=== PATIENT | male | born 1950 | race Caucasian/White ===

== ENCOUNTER 2017-01-10 19:08 | Emergency (ER) | payer OTHER, MEDICARE ==
[~2017-01-10] VITALS: Ht 167.6 cm; Wt 113.6 kg
[2017-01-10 19:28] VITALS: BP 172/91; PULSE 92; RESP 15; O2SAT 95
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
[2017-01-10] MEDS ORDERED: 0.9% Sodium Chloride 1,000 ML IV ONE (20:53)
[2017-01-10] MEDS ORDERED: Ondansetron 2 mg/mL 2 mL Inj IVPUSH ONE (20:55)
[2017-01-10 21:31] LABS: BASOPHILS % (AUTO) 0.3 % (0-3); EOSINOPHILS % (AUTO) 1.4 % (0-5); MONOCYTES % (AUTO) 8.2 % (4-12); Mean Corpuscular Hemoglobin 32.5 pg (27.0-35.0); Mean Corpuscular Volume 91.8 fL (81-100); NEUTROPHILS % (AUTO) 67.1 % (40-74); Platelet Count 169 bil/L (150-400)
[2017-01-10 21:56] LABS: TROPONIN T 0.01 ug/L (0.0-0.011)
[2017-01-10 22:15] LABS: APPEARANCE,URINE CLEAR (CLEAR,HAZY); COLOR,URINE YELLOW (YELLOW); OCCULT BLOOD,URINE NEGATIVE (NEGATIVE); UROBILINOGEN,URINE NORMAL (NORMAL)
[2017-01-10 22:15] LABS: INR 0.96 ratio
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
[2017-01-10] MEDS ORDERED: METH500T PO (23:12)
[2017-01-10 23:47] VITALS: BP 111/60; PULSE 72; RESP 16; O2SAT 94
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
== END 2017-01-10 23:51 | disposition home or self-care (01) ==
LOC: SED 19:08
DX: S31.109A Unspecified open wound of abdominal wall, unspecified quadrant without penetration into peritoneal cavity, initial encounter (principal); S30.1XXA Contusion of abdominal wall, initial encounter; S80.02XA Contusion of left knee, initial encounter; S30.811A Abrasion of abdominal wall, initial encounter; S80.212A Abrasion, left knee, initial encounter; V49.40XA Driver injured in collision with unspecified motor vehicles in traffic accident, initial encounter; Y93.89 Activity, other specified; Y92.410 Unspecified street and highway as the place of occurrence of the external cause; Y99.8 Other external cause status; E11.9 Type 2 diabetes mellitus without complications
CPT/HCPCS: 36415; 71010; 71260; 72170; 73562; 74177; 80053; 81001; 84484; 85025; 85610; 85730; 86850; 93005; 96361; 96374; 99285; J2405; J7030; Q9967